=== PATIENT | female | born 2000 | race Two or more races ===

== ENCOUNTER 2025-04-21 07:28 | Emergency (ER) | payer OTHER ==
[~2025-04-21] VITALS: Ht 157.5 cm; Wt 83.9 kg
[2025-04-21 07:40] VITALS: BP 152/88; O2SAT 96
[2025-04-21] MEDS ORDERED: METHYLPREDNISOLONE SOD SUCC 125 MG VIAL IV ONE (08:15)
[2025-04-21] MEDS ORDERED: ALBUTEROL SULFATE 3 ML/2.5 MG AMPUL.NEB IH SCH (08:15)
[2025-04-21] MEDS ORDERED: METHYLPREDNISOLONE SOD SUCC 125 MG VIAL ONE (08:17)
[2025-04-21] MEDS ORDERED: ALBUTEROL SULFATE 3 ML/2.5 MG AMPUL.NEB IH ONE (08:22)
[2025-04-21 08:54] LABS: ABG PH 7.414 (7.35-7.45); ABG PO2 72.0 mmHg (80-100); BICARBONATE 22.1 mmol/l (23-25); o2 21 %
[2025-04-21 09:46] LABS: BASO % 0.3 % (0.1-1.2); EOS # 0.63 (0.04-0.54); EOS % 6.6 % (0.7-7.0); LYMPH # 1.24 (1.18-3.74); LYMPH % 12.9 % (19.3-53.1); MEAN PLATELET VOLUME 10.50 fl (9.4-12.4); MONO # 1.20 (0.24-0.82); NEUT # 6.47 (1.56-6.13); NEUT % 67.4 % (34.0-71.1); RED CELL DISTRIBUTION WIDTH 13.6 % (11.6-14.4)
[2025-04-21 09:50] LABS: MONO % 12.5 % (4.7-12.5)
[2025-04-21] MEDS ORDERED: LEVALBUTEROL HCL 0.63 MG/3 ML SOLUTION IH ONE ×2 (10:22→10:30)
== END 2025-04-21 11:24 | disposition home or self-care (01) ==
LOC: ER 09:04
PROVIDERS: Emergency Medicine
DX: J45.909 Unspecified asthma, uncomplicated (principal); Z91.013 Allergy to seafood; F17.210 Nicotine dependence, cigarettes, uncomplicated